=== PATIENT | female | born 1995 | race Caucasian/White ===

== ENCOUNTER 2017-09-29 20:43 | Emergency (ER) | payer OTHER ==
[2017-09-29 23:22] LABS: BASOPHIL % 0.2 % (0-2); PLATELET COUNT 150 x10^3mcL (130-400)
[2017-09-29 23:29] LABS: CALCIUM 8.1 mg/dL (8.5-10.1); CARBON DIOXIDE 25.3 mmol/L (21-32); CHLORIDE SERUM 106 mmol/L (98-107); CREATININE SERUM 0.7 mg/dL (0.6-1.0); GFR1 > 60 mL/min; GLUCOSE SERUM 106 mg/dL (74-106); POTASSIUM SERUM 3.5 mmol/L (3.5-5.1); SODIUM SERUM 140 mmol/L (136-145)
[2017-09-29 23:43] LABS: microscopic required? NO
[2017-09-29 23:47] LABS: ALKALINE PHOSPHATASE 74 U/L (46-116); ALT/SGPT 69 U/L (14-59); AST/SGOT 50 U/L (15-37); BILIRUBIN TOTAL 0.2 mg/dL (0.20-1.00); TOTAL PROTEIN, SERUM 6.9 g/dL (6.4-8.2)
[2017-09-29 23:48] LABS: ALBUMIN 3.1 g/dL (3.4-5.0); CHOLESTEROL 128 mg/dL (<200)
[2017-09-30 00:26] LABS: UA SPECIFIC GRAVITY <=1.005 (1.005-1.035); urine erythrocyte NEGATIVE (NEGATIVE)
[2017-09-30 01:15] VITALS: BP 136/86
== END 2017-09-30 01:15 | disposition home or self-care (01) ==
LOC: ED 20:43
PROVIDERS: Emergency Medicine
DX: J11.1 Influenza due to unidentified influenza virus with other respiratory manifestations (principal)
CPT/HCPCS: 83880; 87804; J1885; J2405; J7030; Q0092